=== PATIENT | male | born 2000 | race Caucasian/White ===

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

== ENCOUNTER 2024-11-04 13:32 | Emergency (ER) | payer SELFPAY ==
[2024-11-04] MEDS: Acetaminophen/oxyCODONE 325-10 MG Tab PO ONE (14:04)
== END 2024-11-04 15:15 | disposition home or self-care (01) ==
LOC: MW.ED 13:32
DX: S93.401A Sprain of unspecified ligament of right ankle, initial encounter (principal); Z75.8 Other problems related to medical facilities and other health care; X50.1XXA Overexertion from prolonged static or awkward postures, initial encounter
CPT/HCPCS: 73590; 73610; 99283; A9270